=== PATIENT | male | born 1985 | race Hispanic/Latino ===

== ENCOUNTER 2020-06-05 07:41 | Emergency (ER) | payer SELFPAY | END 2020-06-05 09:06 | LOC: EEVIPCON 07:41 → EDH 07:41 | DX: J06.9 Acute upper respiratory infection, unspecified (principal); Z20.822 Contact with and (suspected) exposure to COVID-19; Z72.0 Tobacco use | CPT/HCPCS: 71045; 87426 ==

== ENCOUNTER 2022-12-31 10:53 | Emergency (ER) | payer BC, OTHER ==
[~2022-12-31] VITALS: Ht 175.3 cm; Wt 95.3 kg
[2022-12-31 11:09] VITALS: BP 142/96; PULSE 98; RESP 20
== END 2022-12-31 11:43 | disposition left against medical advice (07) ==
LOC: EDH 10:53
DX: M79.645 Pain in left finger(s) (principal); Z53.21 Procedure and treatment not carried out due to patient leaving prior to being seen by health care provider